=== PATIENT | female | born 1965 | race African-American/Black ===

== ENCOUNTER → 2024-02-17 | Outpatient (REF) ==
[~2024-02-17] MED LIST: AMLO1TAB25 PO; ASPI81CH8 PO; ATOR1TAB21 PO; CHLO25TA88 PO; DILT180C38 PO; LOSA-528 PO; METO1TAB87 PO; NICO21PAT TD; NICO2GUM8 PO; NITR0.3S4 SL; SERO1TAB2 PO; WELLTAB38 PO
== END ==
LOC: M LAB 14:10
PROVIDERS: ATTEND Nurse Practitioner Adult Health
DX: Z02.89 Encounter for other administrative examinations (principal)

== ENCOUNTER 2024-02-20 12:01 | Observation (INO) | payer MEDICAID, OTHER ==
[~2024-02-20] VITALS: Ht 157.5 cm; Wt 92.3 kg
[2024-02-20] MEDS: dilTIAZem **CD** 180MG CAP PO ONE (13:15)
[2024-02-20 13:27] LABS: BASO # 0.1 10^3/uL (0.0-0.2); BASO % 0.6 % (0.0-1.0); EOS # 0.1 10^3/uL (0.0-0.5); EOS % 1.1 % (0.0-3.0); HEMATOCRIT 43.5 % (36.0-47.0); HEMOGLOBIN 14.2 g/dl (12.0-15.5); LYMPH # 2.3 10^3/uL (1.5-5.0); LYMPH % 26.6 % (24.0-44.0); MEAN CORPUSCULAR HEMOGLOBIN 31.7 pg (27.0-33.0); MEAN CORPUSCULAR HGB CONC 32.6 g/dl (32.0-36.5); MEAN CORPUSCULAR VOLUME 97.1 fl (80.0-96.0); MONO # 0.6 10^3/uL (0.0-0.8); MONO % 6.6 % (2.0-8.0); NEUTROPHILS # 5.6 10^3/uL (1.5-8.5); NEUTROPHILS % 64.5 % (36.0-66.0); PLATELET COUNT, AUTOMATED 234 10^3/uL (150-450); RED BLOOD COUNT 4.48 10^6/uL (4.00-5.40); WHITE BLOOD COUNT 8.7 10^3/uL (4.0-10.0)
[2024-02-20 13:44] LABS: INR 1.03; PARTIAL THROMBOPLASTIN TIME 24.6 SECONDS (24.8-34.2); PROTHROMBIN TIME 13.2 SECONDS (12.5-14.5)
[2024-02-20 13:59] LABS: FREE T4 1.38 NG/DL (0.89-1.76); THYROID STIMULATING HORMONE 0.715 uIU/ML (0.55-4.78)
[2024-02-20] MEDS: hydrALAZINE 20MG/ML 1ML VIAL IV ONE ×2 (13:59→16:15)
[2024-02-20 14:02] LABS: ALBUMIN 3.8 G/DL (3.2-5.2); ALKALINE PHOSPHATASE 58 U/L (46-116); ALT/SGPT 17 U/L (7.0-40); AST/SGOT 32 U/L (<34); BILIRUBIN,DIRECT < 0.1 MG/DL (<0.4); BILIRUBIN,TOTAL 0.6 MG/DL (0.3-1.2); BLOOD UREA NITROGEN 8 MG/DL (9-23); CALCIUM LEVEL 9.1 MG/DL (8.5-10.1); CARBON DIOXIDE LEVEL 26 MMOL/L (20-31); CHLORIDE LEVEL 113 MMOL/L (98-107); CPK CREATINE PHOSPHOKINASE 88 U/L (34-145); CREATININE FOR GFR 0.41 MG/DL (0.55-1.30); GLOMERULAR FILTRATION RATE > 60.0 (>51); GLUCOSE, FASTING 111 MG/DL (60-100); MB/CK RELATIVE INDEX 1.13 (< OR =4); POTASSIUM SERUM 4.7 MMOL/L (3.5-5.1); SODIUM LEVEL 142 MMOL/L (136-145); TOTAL PROTEIN 7.3 G/DL (5.7-8.2)
[2024-02-20] MEDS ORDERED: ISOVUE-370 76% 100ML VIAL As Ordered ONE (15:02)
[2024-02-20] MEDS: hydrALAZINE 20MG/ML 1ML VIAL IV STA (15:09)
[2024-02-20] MEDS: ASPIRIN 81MG CHEW TABLET PO ONE (15:10)
[2024-02-20] MEDS: NITROGLYCERIN 0.4MG SUBL TABLET SL PRN (15:16)
[2024-02-20 15:19] LABS: MB/CK RELATIVE INDEX 1.42 (< OR =4)
[2024-02-20] MEDS ORDERED: LABETALOL 100MG/20ML VIAL IV PRN (17:25)
[2024-02-20] MEDS ORDERED: NITROGLYCERIN 0.3MG SUBL TAB SL PRN (17:25)
[2024-02-20 18:11] LABS: CHOLESTEROL LEVEL 189 MG/DL (<200); CHOLESTEROL RISK RATIO 4.16 (<5); HDL CHOLESTEROL 45.4 MG/DL (>40); LDL CHOLESTEROL 122.8 MG/DL (<100); NON-HDL-C 143.6 MG/DL; TRIGLYCERIDES LEVEL 104 MG/DL (<150)
[2024-02-20] MEDS ORDERED: DILT180C38 PO (18:58)
[2024-02-20] MEDS ORDERED: SERO1TAB2 PO (18:58)
[2024-02-20] MEDS ORDERED: WELLTAB38 PO (18:58)
[2024-02-20] MEDS: ATORVASTATIN 20 MG TAB PO ONE (18:58)
[2024-02-20] MEDS ORDERED: CHLO25TA88 PO (18:58)
[2024-02-20] MEDS: ENOXAPARIN 100MG/1ML SYRINGE (J1650 PER 10MG) SC ONE (18:59)
[2024-02-20] MEDS ORDERED: MED REC IN PROGRESS XX SCH (19:05)
[2024-02-20] MEDS ORDERED: HOME MED LIST COMPLETE! XX SCH (19:30)
[2024-02-20 20:46] LABS: HEMOGLOBIN A1c 5.4 % (4.0-6.0)
[2024-02-20 20:55] LABS: CREATININE FOR GFR 0.48 MG/DL (0.55-1.30); GLOMERULAR FILTRATION RATE > 60.0 (>51)
[2024-02-20] MEDS: ALPRAZolam 0.5 MG TAB PO ONE (21:55)
[2024-02-20] MEDS: LOSARTAN 50MG TABLET PO SCH (21:56)
[2024-02-21] VITALS (7 sets, daily range): BP systolic 124–168; BP diastolic 70–94; TEMP 96.5–97.5; O2SAT 94–99
[2024-02-21] MEDS: ALPRAZolam 0.5 MG TAB PO ONE (03:53)
[2024-02-21 04:45] LABS: HEMATOCRIT 45.4 % (36.0-47.0); HEMOGLOBIN 14.8 g/dl (12.0-15.5); MEAN CORPUSCULAR HEMOGLOBIN 32.2 pg (27.0-33.0); MEAN CORPUSCULAR HGB CONC 32.6 g/dl (32.0-36.5); MEAN CORPUSCULAR VOLUME 98.9 fl (80.0-96.0); PLATELET COUNT, AUTOMATED 219 10^3/uL (150-450); RED BLOOD COUNT 4.59 10^6/uL (4.00-5.40); WHITE BLOOD COUNT 9.6 10^3/uL (4.0-10.0)
[2024-02-21 05:02] LABS: CK-MB VALUE MASS < 1.0 NG/ML (<3.6)
[2024-02-21 05:09] LABS: BLOOD UREA NITROGEN 7 MG/DL (9-23); CALCIUM LEVEL 9.3 MG/DL (8.5-10.1); CARBON DIOXIDE LEVEL 27 MMOL/L (20-31); CHLORIDE LEVEL 109 MMOL/L (98-107); CPK CREATINE PHOSPHOKINASE 63 U/L (34-145); CREATININE FOR GFR 0.45 MG/DL (0.55-1.30); GLOMERULAR FILTRATION RATE > 60.0 (>51); GLUCOSE, FASTING 111 MG/DL (60-100); MB/CK RELATIVE INDEX 1.58 (< OR =4); POTASSIUM SERUM 3.3 MMOL/L (3.5-5.1); SODIUM LEVEL 142 MMOL/L (136-145)
[2024-02-21] MEDS: METOPROLOL TART 25 MG TABLET PO SCH (09:31)
[2024-02-21] MEDS: POTASSIUM CHLORIDE 10MEQ SR TABLET PO ONE (09:31)
[2024-02-21] MEDS: ATORVASTATIN 20 MG TAB PO SCH (09:31)
[2024-02-21] MEDS: buPROPion **XL** TABLET 150MG (WELLBUTRIN XL) PO SCH (09:32)
[2024-02-21] MEDS: amLODIPine 5 MG TAB PO SCH (09:32)
[2024-02-21] MEDS: ASPIRIN 81MG CHEW TABLET PO SCH (09:32)
[2024-02-21] MEDS: NICOTINE 21MG/24HR 1 EA TRANSDERMAL TD SCH (09:33)
[2024-02-21] MEDS: ENOXAPARIN 100MG/1ML SYRINGE (J1650 PER 10MG) SC SCH (09:33)
[2024-02-21] MEDS: QUEtiapine FUMARATE 100 MG TAB PO SCH (20:41)
[2024-02-21] MEDS ORDERED: QUEtiapine FUMARATE 200 MG TAB PO SCH (21:00)
[2024-02-22] VITALS (7 sets, daily range): BP systolic 108–165; BP diastolic 65–92; TEMP 96.5–97.4; O2SAT 84–96
[2024-02-22 06:49] LABS: BLOOD UREA NITROGEN 12 MG/DL (9-23); CARBON DIOXIDE LEVEL 27 MMOL/L (20-31); CHLORIDE LEVEL 110 MMOL/L (98-107); CREATININE FOR GFR 0.49 MG/DL (0.55-1.30); GLOMERULAR FILTRATION RATE > 60.0 (>51); GLUCOSE, FASTING 99 MG/DL (60-100); MAGNESIUM LEVEL 1.9 MG/DL (1.8-2.4); POTASSIUM SERUM 3.9 MMOL/L (3.5-5.1); SODIUM LEVEL 143 MMOL/L (136-145)
[2024-02-22] MEDS: ACETAMINOPHEN TAB 650MG DOSE (2X325MG) PO PRN (17:24)
[2024-02-23 03:23] VITALS: BP 150/79; TEMP 97; O2SAT 94
[2024-02-23 06:22] LABS: HEMOGLOBIN 14.2 g/dl (12.0-15.5); MEAN CORPUSCULAR HEMOGLOBIN 32.1 pg (27.0-33.0); MEAN CORPUSCULAR HGB CONC 32.3 g/dl (32.0-36.5); MEAN CORPUSCULAR VOLUME 99.5 fl (80.0-96.0); PLATELET COUNT, AUTOMATED 209 10^3/uL (150-450); RED BLOOD COUNT 4.42 10^6/uL (4.00-5.40); WHITE BLOOD COUNT 7.7 10^3/uL (4.0-10.0)
[2024-02-23 07:21] LABS: BLOOD UREA NITROGEN 10 MG/DL (9-23); CALCIUM LEVEL 8.9 MG/DL (8.5-10.1); CARBON DIOXIDE LEVEL 26 MMOL/L (20-31); CHLORIDE LEVEL 111 MMOL/L (98-107); GLOMERULAR FILTRATION RATE > 60.0 (>51); GLUCOSE, FASTING 101 MG/DL (60-100); MAGNESIUM LEVEL 1.7 MG/DL (1.8-2.4); POTASSIUM SERUM 3.8 MMOL/L (3.5-5.1); SODIUM LEVEL 142 MMOL/L (136-145)
[2024-02-23 07:44] VITALS: BP 156/82; TEMP 96.5; O2SAT 97
[2024-02-23 09:08] VITALS: BP 156/82
[2024-02-23] MEDS: MAG SULF 1GM/100ML (MAG RUN) 1 GM in IV 1 EA IV SCH (09:08)
[2024-02-23] MEDS ORDERED: LOSA-528 PO (11:07)
[2024-02-23] MEDS ORDERED: NICO21PAT TD (11:07)
[2024-02-23] MEDS ORDERED: ATOR1TAB21 PO (11:07)
[2024-02-23] MEDS ORDERED: ASPI81CH8 PO (11:07)
[2024-02-23] MEDS ORDERED: METO1TAB87 PO (11:07)
[2024-02-23] MEDS ORDERED: NICO2GUM8 PO (11:07)
[2024-02-23] MEDS ORDERED: NITR0.3S4 SL (11:07)
[2024-02-23] MEDS ORDERED: SERO1TAB2 PO (11:24)
[2024-02-23] MEDS ORDERED: WELLTAB38 PO (11:24)
[2024-02-23] MEDS ORDERED: CHLO25TA88 PO (11:24)
[2024-02-23] MEDS ORDERED: AMLO1TAB25 PO (11:26)
[2024-02-23 12:53] VITALS: BP 138/97; TEMP 96.8; O2SAT 98
== END 2024-02-23 14:42 | disposition home or self-care (01) ==
LOC: M ED 12:01 → EDSEX 12:01 → EDBD 12:01 → INTOOBSV 17:24 → M ED INP 17:24 → M PCU 02-21 01:37
PROVIDERS: ADMIT Internal Medicine; ATTEND Internal Medicine
DX: I16.0 Hypertensive urgency (principal); R79.89 Other specified abnormal findings of blood chemistry; F39 Unspecified mood [affective] disorder; I10 Essential (primary) hypertension; E66.9 Obesity, unspecified; E83.42 Hypomagnesemia; R94.31 Abnormal electrocardiogram [ECG] [EKG]; R51.9 Headache, unspecified; Z82.49 Family history of ischemic heart disease and other diseases of the circulatory system; Z79.899 Other long term (current) drug therapy; F17.210 Nicotine dependence, cigarettes, uncomplicated
CPT/HCPCS: 36415; 70450; 71046; 71275; 80048; 80061; 80076; 82550; 82553; 82565; 83036; 83735; 84439; 84443; 84484; 85025; 85027; 85610; 85730; 93005; 93041; 93306; 94760; 96372; 96374; 96375; 96376; 99285; J0360; J1650; J3475; Q9967

== ENCOUNTER 2025-05-15 13:35 | Emergency (ER) | payer MEDICAID, OTHER, SELFPAY ==
[~2025-05-15] VITALS: Ht 160 cm; Wt 102.6 kg
[2025-05-15 13:46] VITALS: TEMP 96.6
[2025-05-15 15:14] LABS: BASO # 0.1 10^3/uL (0.0-0.2); BASO % 0.6 % (0.0-1.0); EOS # 0.2 10^3/uL (0.0-0.5); EOS % 1.9 % (0.0-3.0); LYMPH # 2.5 10^3/uL (1.5-5.0); LYMPH % 27.3 % (24.0-44.0); MONO # 0.4 10^3/uL (0.0-0.8); MONO % 4.9 % (2.0-8.0); NEUTROPHILS # 5.9 10^3/uL (1.5-8.5); NEUTROPHILS % 65.0 % (36.0-66.0); PLATELET COUNT, AUTOMATED 258 10^3/uL (150-450)
[2025-05-15 15:37] LABS: APPEARANCE, URINE CLEAR (CLEAR); BACTERIA, URINE AUTO NEGATIVE (NEGATIVE); BILIRUBIN, URINE AUTO NEGATIVE (NEGATIVE); BLOOD, URINE BLOOD NEGATIVE (NEGATIVE); GLUCOSE, URINE (UA) AUTO NEGATIVE (NEGATIVE); KETONE, URINE AUTO NEGATIVE (NEGATIVE); LEUKOCYTE ESTERASE, URINE AUTO TRACE (NEGATIVE); NITRITE, URINE AUTO NEGATIVE (NEGATIVE); PROTEIN, URINE AUTO NEGATIVE (NEGATIVE); RBC, URINE AUTO 0 /HPF (0-3); SPECIFIC GRAVITY URINE AUTO 1.005 (1.002-1.035); SQUAMOUS EPITHELIAL CELL UR AU 2 /HPF (0-6); UROBILINOGEN, URINE AUTO 0.2 mg/dL (0.0-2.0); WBC, URINE AUTO 0 /HPF (0-3)
[2025-05-15 15:44] LABS: ALT/SGPT 16 U/L (7.0-40); AST/SGOT 13 U/L (<34); CALCIUM LEVEL 9.2 MG/DL (8.5-10.1); CARBON DIOXIDE LEVEL 30 MMOL/L (20-31); CHLORIDE LEVEL 107 MMOL/L (98-107); CREATININE FOR GFR 0.51 MG/DL (0.55-1.30); GLOMERULAR FILTRATION RATE > 90.0 (>51); POTASSIUM SERUM 3.8 MMOL/L (3.5-5.1); SODIUM LEVEL 142 MMOL/L (136-145)
[2025-05-15] MEDS: LABETALOL 100 MG/20 ML VIAL IV STA ×2 (17:11→19:38)
[2025-05-15 17:40] LABS: CK-MB VALUE MASS 1.1 NG/ML (<3.6); MAGNESIUM LEVEL 1.7 MG/DL (1.8-2.4)
[2025-05-15] MEDS ORDERED: HOME MED LIST COMPLETE! XX SCH (17:40)
[2025-05-15 17:45] LABS: CPK CREATINE PHOSPHOKINASE 105.0 U/L (34-145); FREE T4 1.11 NG/DL (0.89-1.76); MB/CK RELATIVE INDEX 1.04 (< OR =4)
[2025-05-15] MEDS: MAG SULF 1GM/100ML (MAG RUN) 1 GM in IV 1 EA IV ONE (18:21)
[2025-05-15] MEDS ORDERED: ISOVUE-370 76% 100 ML VIAL As Ordered ONE (18:31)
[2025-05-15 18:50] LABS: CK-MB VALUE MASS 1.2 NG/ML (<3.6)
[2025-05-15 18:54] LABS: CPK CREATINE PHOSPHOKINASE 104.0 U/L (34-145); MB/CK RELATIVE INDEX 1.15 (< OR =4)
[2025-05-15 21:10] VITALS: BP 148/88
[2025-05-15] MEDS: LOSARTAN 50 MG TABLET PO ONE (21:10)
[2025-05-15] MEDS: METOPROLOL TART 25 MG TABLET PO ONE (21:10)
[2025-05-15 21:31] VITALS: O2SAT 97
[2025-05-15 21:52] VITALS: BP 148/88
[2025-05-15] MEDS ORDERED: NORV5TAB PO (22:04)
[2025-05-15] MEDS ORDERED: METO1TAB87 PO (22:04)
[2025-05-15] MEDS ORDERED: LOSA50TA28 PO (22:04)
== END 2025-05-15 22:16 | disposition home or self-care (01) ==
LOC: M ED 13:35
DX: I10 Essential (primary) hypertension (principal); R00.0 Tachycardia, unspecified; I25.2 Old myocardial infarction; Z79.899 Other long term (current) drug therapy
CPT/HCPCS: 36415; 70450; 71045; 71260; 80048; 80076; 81001; 82550; 82553; 83735; 84439; 84443; 84484; 85025; 93005; 96374; 96375; 99285; J1920; J3475; Q9967